=== PATIENT | male | born 1995 | race American Indian/Alaskan Native ===

== ENCOUNTER 2016-09-13 23:43 | Emergency (ER) | payer OTHER ==
[2016-09-14 00:35] VITALS: BP 131/84
[2016-09-14] MEDS ORDERED: FUL-GLO OP ONE ×2 (02:23→02:26)
[2016-09-14] MEDS ORDERED: TETRACAINE 0.5% OU PRN (02:23)
[2016-09-14] MEDS ORDERED: TETRACAINE 0.5% ONE (02:26)
[2016-09-14] MEDS ORDERED: BSS ONE (02:26)
--- NOTE | 2016-09-14 02:52 | Emergency Department Report ---
[facility] Chief Complaint: Eye Problems Stated Complaint: PAIN RT EYE Time Seen by Provider: 09/14/16 02:22 Duration: 1 Day Side: Right Symptoms: Yes Eye Itching, Yes Eye Redness, Yes Mucous Drainage, Yes Purulent Drainage, No Eye Pain, No Blurred Vision, No Preceding URI, No H/O Allergic Rhinitis, No Contact Lens Use, No Trauma, No Fever, No Headache Other History: This is a 20-year-old male that presents with right eye redness with drainage and crossed 1 day. Patient denies any visual changes, blurry vision, floaters. Patient denies any foreign body in the eye. Patient did woke up this morning with redness and itching of the right eye. Patient denies any drug allergies. Patient does not seem toxic or ill in appearance. No signs of distress noted. ED Review of Systems ROS: Stated complaint: PAIN RT EYE Other details as noted in HPI Constitutional: denies: chills, fever Eyes: eye discharge, other (crusting). denies: eye pain, vision change ENT: denies: ear pain, throat pain Respiratory: denies: cough, shortness of breath, wheezing Cardiovascular: denies: chest pain, palpitations Endocrine: no symptoms reported Gastrointestinal: denies: abdominal pain, nausea, diarrhea Genitourinary: denies: urgency, dysuria Musculoskeletal: denies: back pain, joint swelling, arthralgia Skin: denies: rash, lesions Neurological: denies: headache, weakness, paresthesias Psychiatric: denies: anxiety, depression Hematological/Lymphatic: denies: easy bleeding, easy bruising ED Past Medical Hx - Past Medical History Previous Medical History?: No Hx Hypertension: No Hx CVA: No Hx Heart Attack/AMI: No Hx Congestive Heart Failure: No Hx Diabetes: No Hx Deep Vein Thrombosis: No Hx Pulmonary Embolism: No Hx GERD: No Hx Liver Disease: No Hx Arthritis: No Hx Headaches / Migraines: No Hx Seizures: No Hx Kidney Stones: No Hx Psychiatric Treatment: No Hx Asthma: No Hx COPD: No Hx Tuberculosis: No Hx Dementia: No Hx HIV: No - Surgical History Past Surgical History?: Yes Hx Coronary Stent: No Hx Open Heart Surgery: No Hx Internal Defibrillator: No Hx Cholecystectomy: No Hx Appendectomy: No - Social History Smoking Status: Current Every Day Smoker Substance Use Type: None - Medications Home Medications: Home Medications Medication Instructions Recorded Confirmed Last Taken Type metroNIDAZOLE [Flagyl] 500 mg PO BID #20 tablet 10/02/13 Unknown Rx Ibuprofen [Motrin 800 MG tab] 800 mg PO Q8HR PRN #30 tablet 05/11/15 Unknown Rx Polymyxin B Sulf/Trimethoprim 1 drop OP QID 7 Days 09/14/16 Unknown Rx [Polytrim Eye Drops [id number]/0.1%] [facility] Exam - Exam General: Vital signs noted. No distress. Alert and acting appropriately. GENERAL: The patient is a well-developed, well-nourished male in no apparent distress. Patient is alert and oriented x3. VITAL SIGNS: Stable HEENT: Head is normocephalic and atraumatic. Extraocular muscles are intact. Pupils are equal, round, and reactive to light and accommodation. Nares appeared normal. Mouth is well hydrated and without lesions. Mucous membranes are moist. Posterior pharynx clear of any exudate or lesions. Right eye erythema with purulent drainage and crusting. Denies floaters. NECK: Supple. No carotid bruits. No lymphadenopathy or thyromegaly. LUNGS: Clear to auscultation. HEART: Regular rate and rhythm without murmur. ABDOMEN: Soft, nontender, and nondistended. Positive bowel sounds. No hepatosplenomegaly was noted. EXTREMITIES: Without any cyanosis, clubbing, rash, lesions or edema. NEUROLOGIC: Cranial nerves II through XII are grossly intact. PSYCHIATRIC: Flat affect, but denies suicidal or homicidal ideations. SKIN: No ulceration or induration present. Eye Exam: Right Purulent Discharge, Neither Injection, Neither Chemosis, Neither Abnormal Pupil, Neither EOMI, Neither Eye Foreign Body, Neither Lid Foreign Body, Neither Mucous Discharge, Neither Fluorescein Uptake, Neither Fluorescein Uptake (slit lamp), Neither Cell/Flare (slit lamp), Neither Corneal Edema, Neither Photophobia HEENT: No Nasal Congestion, No Pharyngeal Erythema Remainder of HEENT: Normal Lungs: Yes Clear Lung Sounds, Yes Good Air Exchange, No Wheezes, No Stridor, No Cough, No Nasal Flaring, No Retractions, No Use of Accessory Muscles Exam: Under Wood's lamp, I have used 0.5% tetracaine with fluorescein to assess for possibility of corneal abrasion. Negative corneal abrasion to right eye. ED Course Vital Signs 09/14/16 00:30 Temperature 98.2 F Pulse Rate 87 Respiratory 18 Rate Blood Pressure 131/84 Blood Pressure 131/84 [Left] O2 Sat by Pulse 99 Oximetry ED Medical Decision Making - Medical Decision Making ED course: 20-year-old male that presents with conjunctivitis 1- patient received Polytrim at the time of discharge. I instructed the patient to wash hands after contact of the right eye due to highly contagious. At the time of discharge the patient does not seem toxic or ill in appearance. No signs of distress noted. Patient agrees to take full course of antibiotics as prescribed. Critical care attestation.: If time is entered above; I have spent that time in minutes in the direct care of this critically ill patient, excluding procedure time. ED Disposition Clinical Impression: Conjunctivitis Qualifiers: Conjunctivitis type: unspecified Laterality: right Qualified Code(s): H10.9 - Unspecified conjunctivitis Disposition: DISCHARGED TO HOME OR SELFCARE Is pt being admited?: No Does the pt Need Aspirin: No Condition: Stable Instructions: Conjunctivitis (ED) Additional Instructions: Follow-up with her primary care doctor in 3-5 days. Take Polytrim as prescribed 4 times a day for 7 days. Prescriptions: Polymyxin B Sulf/Trimethoprim [Polytrim Eye Drops [id number]/0.1%] 1 drop OP QID 7 Days Referrals: PRIMARY CARE, [Primary Care Provider] - 3-5 Days Forms: Work/School Release Form(ED)
== END 2016-09-14 03:12 | disposition home or self-care (01) ==
LOC: ED 23:43
DX: H10.9 Unspecified conjunctivitis (principal); F17.200 Nicotine dependence, unspecified, uncomplicated
CPT/HCPCS: 99282

== ENCOUNTER 2021-12-25 05:23 | Emergency (ER) | payer SELFPAY ==
--- NOTE | 2021-12-25 08:27 | Emergency Department Report ---
- General Chief complaint: Skin/Abscess/Foreign Body Stated complaint: INFECTED EARLOBE Time Seen by Provider: 12/25/21 08:07 Source: patient Mode of arrival: Ambulatory Limitations: No Limitations - History of Present Illness Initial comments: 26 YO COMES IN WITH THE BACK OF AN EARRING EMBEDDED IN HIS LEFT EAR LOBE. THERE IS DRAINAGE. NO FEVER. -: Gradual, days(s) Tetanus Up to Date: no Associated symptoms: denies other symptoms Treatments Prior to Arrival: none - Related Data Previous Rx's Medication Instructions Recorded Last Taken Type Amoxicillin [Trimox CAP] 500 mg PO BID #20 capsule 12/25/21 Unknown Rx Allergies Allergy/AdvReac Type Severity Reaction Status Date / Time No Known Allergies Allergy Verified 10/02/13 21:34 Abscess Boil HPI - HPI Chief Complaint: Skin/Abscess/Foreign Body Stated Complaint: INFECTED EARLOBE Time Seen by Provider: 12/25/21 08:07 Home Medications: Previous Rx's Medication Instructions Recorded Last Taken Type Amoxicillin [Trimox CAP] 500 mg PO BID #20 capsule 12/25/21 Unknown Rx Allergies/Adverse Reactions: Allergies Allergy/AdvReac Type Severity Reaction Status Date / Time No Known Allergies Allergy Verified 10/02/13 21:34 ED Review of Systems ROS: Stated complaint: INFECTED EARLOBE Other details as noted in HPI Comment: All other systems reviewed and negative ED Past Medical Hx - Past Medical History Previous Medical History?: Yes Hx Hypertension: Yes Hx CVA: No Hx Heart Attack/AMI: No Hx Congestive Heart Failure: No Hx Diabetes: No Hx Deep Vein Thrombosis: No Hx Pulmonary Embolism: No Hx GERD: No Hx Liver Disease: No Hx Arthritis: No Hx Headaches / Migraines: No Hx Seizures: No Hx Kidney Stones: No Hx Psychiatric Treatment: No Hx Asthma: No Hx COPD: No Hx Tuberculosis: No Hx Dementia: No Hx HIV: No - Surgical History Past Surgical History?: No Hx Coronary Stent: No Hx Open Heart Surgery: No Hx Internal Defibrillator: No Hx Cholecystectomy: No Hx Appendectomy: No - Family History Family history: no significant - Social History Smoking Status: Unknown if ever smoked Substance Use Type: Alcohol - Medications Home Medications: Home Medications Medication Instructions Recorded Confirmed Last Taken Type Amoxicillin [Trimox CAP] 500 mg PO BID #20 capsule 12/25/21 Unknown Rx ED Physical Exam - General Limitations: No Limitations General appearance: alert, in no apparent distress - Head Head exam: Present: atraumatic, normocephalic - Eye Eye exam: Present: normal appearance - ENT ENT exam: Present: mucous membranes moist - Neck Neck exam: Present: normal inspection - Respiratory Respiratory exam: Present: normal lung sounds bilaterally. Absent: respiratory distress - Cardiovascular Cardiovascular Exam: Present: regular rate, normal rhythm. Absent: systolic murmur, diastolic murmur, rubs, gallop - GI/Abdominal GI/Abdominal exam: Present: soft, normal bowel sounds - Rectal Rectal exam: Present: deferred - Extremities Exam Extremities exam: Present: normal inspection - Back Exam Back exam: Present: normal inspection - Neurological Exam Neurological exam: Present: alert, oriented X3 - Psychiatric Psychiatric exam: Present: normal affect, normal mood - Skin Skin exam: Present: warm, dry, intact, normal color. Absent: rash ED Course Vital Signs 12/25/21 12/25/21 05:32 09:37 Temperature 97.2 F L 98.9 F Pulse Rate 82 87 Respiratory 18 14 Rate Blood Pressure 143/90 Blood Pressure 143/90 122/68 [Right] O2 Sat by Pulse 98 100 Oximetry - I & D LEFT EAR LOBE Type of Procedure: Simple Blade Size: 11 I & D Procedure: betadine prep Progress: LIDO 1 ML 2% FOR ANESTHESIA WOUND CLEANED NO 11 BLADE TO OPEN EAR AND BACK OF EARRING REMOVED TOLERATED WELL ED Medical Decision Making - Medical Decision Making fb removed from ER tolerated well Vital Signs 12/25/21 05:32 Temperature 97.2 F L Pulse Rate 82 Respiratory 18 Rate Blood Pressure 143/90 Blood Pressure 143/90 [Right] O2 Sat by Pulse 98 Oximetry DC HOME WITH DC PLAN OF CARE. AMOX FOR INFECTIOUS CONCERNS PT VERBALIZES UNDERSTANDING OF PLAN OF CARE. - Differential Diagnosis FB IN LEFT EAR LOBE Critical care attestation.: If time is entered above; I have spent that time in minutes in the direct care of this critically ill patient, excluding procedure time. ED Disposition Clinical Impression: Foreign body in ear Disposition: 01 HOME / SELF CARE / HOMELESS Is pt being admited?: No Does the pt Need Aspirin: No Condition: Stable Instructions: Ear Foreign Body Additional Instructions: keep wound clean and dry follow up with pcp next week to be sure this is healing motrin or tylenol for pain tdap was updated today Prescriptions: Amoxicillin [Trimox CAP] 500 mg PO BID #20 capsule Referrals: YAQUELIN WELCH MD [Primary Care Provider] - 3-5 Days Forms: Work/School Release Form(ED) Time of Disposition: 09:21
[2021-12-25] MEDS ORDERED: LIDOCAINE (1%) 10 MG/1 ML VIAL 20 ML MDV INFILTRATI ONE (08:36)
[2021-12-25] MEDS ORDERED: TETANUS,DIPH,PERTUSS(ACELL) VACCINE 0.5 ML SYRINGE IM ONE (08:36)
[2021-12-25] MEDS ORDERED: SODIUM CHLORIDE 0.9% IRR 500 ML BOTTLE IR SCH (09:00)
[2021-12-25] MEDS ORDERED: HYDROcodone/ACETAMINOPHEN 5-325 MG TAB PO SCH (09:00)
[2021-12-25] MEDS ORDERED: AMOXICILLIN 500 MG CAP PO ONE (09:20)
[2021-12-25 09:38] VITALS: BP 122/68
== END 2021-12-25 09:37 | disposition home or self-care (01) ==
LOC: ED 05:23
DX: T16.2XXA Foreign body in left ear, initial encounter (principal); I10 Essential (primary) hypertension; Z72.89 Other problems related to lifestyle; Z79.899 Other long term (current) drug therapy; W45.8XXA Other foreign body or object entering through skin, initial encounter; Y93.89 Activity, other specified; Y92.89 Other specified places as the place of occurrence of the external cause; Y99.8 Other external cause status
CPT/HCPCS: 90471; 90715; 99282; 99283